=== PATIENT | male | born 1950 | race Caucasian/White ===

== ENCOUNTER → 2016-06-19 | Outpatient (CLI) | payer OTHER ==
[~2016-06-19] MED LIST: GEMFIBROZIL600 M1 PO; SYNTHROID0.2 MG/TAB PO; ZYLOPRIM 100MG100 MG PO; ZYLOPRIM 300MG300 MG PO
[2016-06-19 07:30] VITALS: BP 135/74
== END ==
LOC: AMSURD 07:07
DX: Z01.810 Encounter for preprocedural cardiovascular examination (principal); M25.561 Pain in right knee

== ENCOUNTER → 2016-07-06 | Outpatient (CLI) | payer OTHER ==
[2016-06-19 07:30] VITALS: BP 135/74
== END ==
LOC: PT 09:20

== ENCOUNTER → 2016-07-25 | Outpatient (CLI) | payer OTHER | LOC: RAD 07:17 | DX: M79.661 Pain in right lower leg (principal); M79.89 Other specified soft tissue disorders; Z96.651 Presence of right artificial knee joint ==

== ENCOUNTER 2016-07-26 08:01 | Outpatient (RCR) | payer OTHER ==
[2016-06-19 07:30] VITALS: BP 135/74
== END 2016-09-10 14:38 | disposition home or self-care (01) ==
LOC: PT 08:01
DX: Z47.1 Aftercare following joint replacement surgery (principal); Z96.652 Presence of left artificial knee joint

== ENCOUNTER → 2017-02-27 | Outpatient (CLI) | payer OTHER ==
[~2017-02-27] VITALS: Ht 170.2 cm; Wt 106.8 kg
[~2017-02-27] MED LIST changes: +FOLIC ACID1 MG; +NATURAL IRON65 MG; +VITAMIN C500 MG
[2017-02-27 09:27] VITALS: BP 134/73
== END ==
LOC: AMSURD 09:01
DX: Z01.818 Encounter for other preprocedural examination (principal)

== ENCOUNTER 2017-05-28 10:00 | Outpatient (RCR) | payer OTHER ==
[2017-02-27 09:27] VITALS: BP 134/73
== END 2017-05-28 10:30 | disposition home or self-care (01) ==
LOC: PT 10:00
DX: Z47.1 Aftercare following joint replacement surgery (principal); Z96.652 Presence of left artificial knee joint

== ENCOUNTER → 2018-04-08 | Outpatient (CLI) | payer MEDICARE ==
[2017-02-27 09:27] VITALS: BP 134/73
[2018-04-08 09:57] LABS: ALBUMIN 4.3 g/dL (3.5-5.0); CALCIUM 9.6 mg/dL (8.4-10.2); POTASSIUM 4.8 mmol/L (3.6-5.0); TOTAL BILIRUBIN 0.8 mg/dL (0.2-1.3); TOTAL PROTEIN 7.4 g/dL (6.3-8.2)
[2018-04-08 10:04] LABS: EOS # 0.2 (0.04-0.40); EOS % 3.7 % (0.0-4.0); HEMATOCRIT 44.9 % (42.0-52.0); LYMPH# 1.3 (1.50-4.00); MEAN CELL VOLUME 94 fl (78-100); MEAN CORPUSCULAR HEMOGLOBIN 31 pg (27-31); MEAN CORPUSCULAR HGB CONC 33 g/dL (33-37); MEAN PLATELET VOLUME 9.5 fl (7.4-10.4); MONO # 0.4 (0.20-0.80); NEU # 3.4 (1.40-6.50); PLATELET COUNT 247 K/mm3 (130-400); RED BLOOD COUNT 4.78 M/mm3 (4.20-5.60); RED CELL DISTRIBUTION WIDTH 13.4 % (11.5-14.5); WHITE BLOOD COUNT 5.4 K/mm3 (4.8-10.8)
== END ==
LOC: LAB 09:18
PROVIDERS: Physician Assistant
DX: M10.9 Gout, unspecified (principal); G47.33 Obstructive sleep apnea (adult) (pediatric); E03.9 Hypothyroidism, unspecified; E78.2 Mixed hyperlipidemia; M25.50 Pain in unspecified joint; M54.5 Low back pain

== ENCOUNTER → 2019-04-15 | Outpatient (CLI) | payer MEDICARE ==
[2017-02-27 09:27] VITALS: BP 134/73
[2019-04-15 09:20] LABS: ALBUMIN 4.3 g/dL (3.4-4.8); EOS # 0.2 (0.04-0.40); HEMATOCRIT 45.6 % (42.0-52.0); HEMOGLOBIN 15.3 g/dL (13.5-18.0); LYMPH# 1.4 (1.50-4.00); MEAN CELL VOLUME 93 fl (78-100); MEAN CORPUSCULAR HEMOGLOBIN 31 pg (27-31); MEAN CORPUSCULAR HGB CONC 34 g/dL (33-37); MEAN PLATELET VOLUME 9.2 fl (7.4-10.4); MONO # 0.4 (0.20-0.80); NEU # 3.2 (1.40-6.50); PLATELET COUNT 285 K/mm3 (130-400); POTASSIUM 4.8 mmol/L (3.5-5.1); RED BLOOD COUNT 4.92 M/mm3 (4.20-5.60); RED CELL DISTRIBUTION WIDTH 13.8 % (11.5-14.5); WHITE BLOOD COUNT 5.2 K/mm3 (4.8-10.8)
[2019-04-15 09:21] LABS: CALCIUM 9.8 mg/dL (8.3-10.5)
[2019-04-15 09:23] LABS: TOTAL PROTEIN 7.8 g/dL (6.2-8.1)
[2019-04-15 09:24] LABS: TOTAL BILIRUBIN 0.6 mg/dL (0.2-1.2)
== END ==
LOC: LAB 08:53
PROVIDERS: Physician Assistant
DX: Z00.00 Encounter for general adult medical examination without abnormal findings (principal); Z12.5 Encounter for screening for malignant neoplasm of prostate; E78.2 Mixed hyperlipidemia; E03.4 Atrophy of thyroid (acquired); M1A.09X0 Idiopathic chronic gout, multiple sites, without tophus (tophi); G47.33 Obstructive sleep apnea (adult) (pediatric); E66.9 Obesity, unspecified; R73.02 Impaired glucose tolerance (oral)

== ENCOUNTER → 2019-10-07 | Outpatient (CLI) | payer MEDICARE ==
[2017-02-27 09:27] VITALS: BP 134/73
== END ==
LOC: RAD 08:00
DX: K80.20 Calculus of gallbladder without cholecystitis without obstruction (principal)

== ENCOUNTER → 2020-04-22 | Outpatient (CLI) | payer MEDICARE, OTHER ==
[2017-02-27 09:27] VITALS: BP 134/73
[2020-04-22 08:44] LABS: EOS # 0.2 (0.04-0.40); EOS % 4.1 % (0.0-4.0); HEMATOCRIT 44.9 % (42.0-52.0); HEMOGLOBIN 14.7 g/dL (13.5-18.0); LYMPH# 1.4 (1.50-4.00); MEAN CELL VOLUME 94 fl (78-100); MEAN CORPUSCULAR HEMOGLOBIN 31 pg (27-31); MEAN CORPUSCULAR HGB CONC 33 g/dL (33-37); MEAN PLATELET VOLUME 8.8 fl (7.4-10.4); MONO # 0.5 (0.20-0.80); NEU # 3.4 (1.40-6.50); PLATELET COUNT 249 K/mm3 (130-400); RED BLOOD COUNT 4.79 M/mm3 (4.20-5.60); RED CELL DISTRIBUTION WIDTH 13.9 % (11.5-14.5); WHITE BLOOD COUNT 5.6 K/mm3 (4.8-10.8)
[2020-04-22 08:55] LABS: POTASSIUM 4.3 mmol/L (3.5-5.1)
[2020-04-22 08:57] LABS: CALCIUM 9.3 mg/dL (8.3-10.5)
[2020-04-22 08:58] LABS: TOTAL PROTEIN 7.1 g/dL (6.2-8.1)
[2020-04-22 09:00] LABS: TOTAL BILIRUBIN 0.7 mg/dL (0.2-1.2)
== END ==
LOC: LAB 08:26
PROVIDERS: Nurse Practitioner
DX: E78.2 Mixed hyperlipidemia (principal); E03.9 Hypothyroidism, unspecified; R73.03 Prediabetes; M10.9 Gout, unspecified; Z71.89 Other specified counseling

== ENCOUNTER → 2021-05-26 | Outpatient (CLI) | payer MEDICARE, OTHER ==
[2021-05-26 08:58] LABS: BASO # 0.03 K/mm3 (0.02-0.10); EOS # 0.22 K/mm3 (0.04-0.40); EOS % 3.7 % (0.0-4.0); HEMOGLOBIN 15.4 g/dL (13.5-18.0); LYMPH# 1.43 K/mm3 (1.50-4.00); MEAN CELL VOLUME 95 fl (78-100); MEAN CORPUSCULAR HEMOGLOBIN 32 pg (27-31); MEAN CORPUSCULAR HGB CONC 34 g/dL (33-37); MEAN PLATELET VOLUME 9.1 fl (7.4-10.4); MONO # 0.45 K/mm3 (0.20-0.80); NEU # 3.83 K/mm3 (1.40-6.50); PLATELET COUNT 248 K/mm3 (130-400); RED BLOOD COUNT 4.85 M/mm3 (4.20-5.60); RED CELL DISTRIBUTION WIDTH 13.3 % (11.5-14.5)
[2021-05-26 09:10] LABS: ALBUMIN 4.1 g/dL (3.4-4.8); POTASSIUM 4.5 mmol/L (3.5-5.1)
[2021-05-26 09:12] LABS: CALCIUM 9.4 mg/dL (8.3-10.5)
[2021-05-26 09:13] LABS: TOTAL PROTEIN 7.5 g/dL (6.2-8.1)
[2021-05-26 09:15] LABS: TOTAL BILIRUBIN 0.6 mg/dL (0.2-1.2)
== END ==
LOC: LAB 08:29
PROVIDERS: Physician Assistant
DX: Z12.5 Encounter for screening for malignant neoplasm of prostate (principal); Z00.00 Encounter for general adult medical examination without abnormal findings; E03.9 Hypothyroidism, unspecified; E78.2 Mixed hyperlipidemia; R73.9 Hyperglycemia, unspecified; K90.9 Intestinal malabsorption, unspecified

== ENCOUNTER → 2023-03-12 | Outpatient (CLI) | payer MEDICARE, OTHER ==
[2023-03-12 09:42] LABS: ALBUMIN 3.8 g/dL (3.4-4.8)
[2023-03-12 09:43] LABS: CALCIUM 8.8 mg/dL (8.3-10.5)
[2023-03-12 09:44] LABS: TOTAL PROTEIN 6.8 g/dL (6.2-8.1)
[2023-03-12 11:06] LABS: TOTAL BILIRUBIN 0.8 mg/dL (0.2-1.2)
== END ==
LOC: LAB 09:14
DX: E78.2 Mixed hyperlipidemia (principal)